=== PATIENT | female | born 1990 | race Caucasian/White ===

== ENCOUNTER 2022-01-20 11:32 | Emergency (ER) | payer SELFPAY ==
[~2022-01-20] VITALS: Ht 170.2 cm; Wt 76.0 kg
[2022-01-20 12:13] LABS: Urine Bacteria NONE SEEN /hpf (None Seen); Urine Blood Negative /uL (Negative); Urine Specific Gravity 1.004 (1.001-1.035); Urine WBC 1 /hpf (0 - 5)
[2022-01-20 12:17] LABS: Basophils # (auto) 0 10 ^3/uL (0-0.2); Basophils % (auto) 0.4 % (0.0-2.0); Eosinophils # (auto) 0.1 10 ^3/uL (0-0.8); Eosinophils % (auto) 0.6 % (0.0-7.0); Hematocrit 38.3 % (36.0-46.0); Hemoglobin 12.9 g/dL (12.2-16.2); Lymphocytes # (auto) 1.6 10 ^3/uL (0.4-5.4); Lymphocytes % (auto) 13.3 % (10.0-50.0); Mean Corpuscular Hemoglobin 31.6 pg (28.0-32.0); Mean Corpuscular Hgb Conc. 33.6 g/dL (32.0-36.0); Mean Corpuscular Volume 93.9 fL (80.0-100.0); Monocytes # (auto) 0.8 10 ^3/uL (0-1.3); Monocytes % (auto) 6.4 % (0.0-12.0); Neutrophils # (auto) 9.7 10 ^3/uL (1.6-8.6); Neutrophils % (auto) 79.3 % (37.0-80.0); Red Blood Cells 4.07 10^6/uL (4.0-5.20); White Blood Cell 12.2 10^3/uL (4.4-10.8)
[2022-01-20 12:42] LABS: Albumin 3.6 g/dL (3.4-5.0); BUN/Creatinine Ratio 9.5; Calcium 8.9 mg/dL (8.5-10.1); Potassium 4.2 mmol/L (3.5-5.1)
[2022-01-20 12:45] LABS: Bilirubin, Total 0.4 mg/dL (0.2-1.0); Total Protein 7.2 g/dL (6.4-8.2)
[2022-01-20] MEDS ORDERED: cefTRIAXone W LIDOCAINE 1 GM IM IM ONE (13:45)
[2022-01-20 14:49] VITALS: BP 130/70
== END 2022-01-20 14:48 | disposition home or self-care (01) ==
LOC: ER 11:32
DX: K60.2 Anal fissure, unspecified (principal)
CPT/HCPCS: 36415; 74176; 80053; 81001; 85025; 96372; 99284; J0696